=== PATIENT | female | born 1985 | race Caucasian/White ===

== ENCOUNTER 2018-07-11 13:58 | Day surgery (SDC) | payer BC ==
[~2018-07-11 13:58] MED LIST: CLINDAMYCIN 600 MG/D5W RTU 600 MG/50 ML RTUPB IV PRN; DEXAMETHASONE SOD PHOSPHATE INJ 4 MG/1 ML VIAL ONE; KETOROLAC TROMETHAMINE 60 MG/2 ML SDV ONE; ONDANSETRON HCL INJ/PF 4 MG/2 ML SDV ONE; VANCOMYCIN HCL 1,000 MG in DEXTROSE 5%-WATER 250 ML IV PRN
[2018-07-11] MEDS ORDERED: CLINDAMYCIN 600 MG/D5W RTU 600 MG/50 ML RTUPB IV ONE (14:23)
[2018-07-11] MEDS ORDERED: ACETAMINOPHEN 1,000 MG/100 ML RTUPB IV ONE (14:28)
[2018-07-11] MEDS ORDERED: HYDROMORPHONE HCL INJ/PF 2 MG/ML AMPULE ONE (14:28)
[2018-07-11] MEDS ORDERED: PROPOFOL INJ 200 MG/20 ML VIAL IV ONE (14:28)
[2018-07-11] MEDS ORDERED: MIDAZOLAM 2 MG/2 ML INJ ONE (14:28)
[2018-07-11] MEDS ORDERED: ONDANSETRON HCL INJ/PF 4 MG/2 ML SDV ONE (14:30)
[2018-07-11 14:42] LABS: APPEARANCE,URINE SLIGHTLY-CLOUDY; BILIRUBIN,URINE NEGATIVE (NEGATIVE); COLOR,URINE YELLOW; GLUCOSE, URINE NEGATIVE (NEGATIVE); KETONES,URINE NEGATIVE (NEGATIVE); LEUKOCYTE ESTERASE,URINE MODERATE (NEGATIVE); NITRITE,URINE NEGATIVE (NEGATIVE); PROTEIN,URINE NEGATIVE (NEGATIVE); URINE SPECIFIC GRAVITY 1.016; UROBILINOGEN,URINE NEGATIVE mg/dL (<2.0)
[2018-07-11] MEDS ORDERED: DIPHENHYDRAMINE HCL 50 MG/ML VIAL IV PRN (15:18)
[2018-07-11] MEDS ORDERED: PROMETHAZINE HCL INJ 25 MG/1 ML VIAL IV PRN ×2 (15:18)
[2018-07-11] MEDS ORDERED: MEPERIDINE HCL/PF INJ 25 MG/1 ML DISP.SYRIN IV PRN (15:18)
[2018-07-11] MEDS ORDERED: FENTANYL CITRATE INJ/PF 100 MCG/2 ML AMPUL IV PRN ×2 (15:18)
[2018-07-11] MEDS ORDERED: MORPHINE SULFATE 10 MG/ML INJ IV PRN (15:18)
[2018-07-11] MEDS ORDERED: BUPIVACAINE HCL 0.5 % INJ/PF 30 ML SDV ONE (15:26)
[2018-07-11] MEDS ORDERED: FENTANYL CITRATE INJ/PF 100 MCG/2 ML AMPUL ONE (16:48)
[2018-07-11] MEDS: FENTANYL CITRATE INJ/PF 100 MCG/2 ML AMPUL IV PRN ×2 (16:50→17:00)
[2018-07-11] MEDS ORDERED: OXYCODONE-ACETAMINOPHEN 5-325 MG TABLET PO PRN ×2 (16:54)
--- NOTE | 2018-07-11 16:54 | Discharge Summary ---
Discharge Summary (SDC) - Discharge Final Diagnosis: Flow of left lateral malleolus with syndesmotic repair Date of Surgery: 07/11/18 Discharge Date: 07/11/18 Condition: Good Treatment or Instructions: Keep the splint dry clean and intact. Ice and elevate as needed Nonweightbearing of the left lower extremity. Use crutches or walker for ambulation. Follow-up in 10-14 days Prescriptions: Oxycodone HCl/Acetaminophen [Percocet 5-325 mg Tablet] 1 - 2 tab PO ASDIR PRN # 40 tablet PRN Reason: Discharge Diet: As Tolerated Respiratory Treatments at Home: Deep Breathing/Coughing Discharge Activity: No Driving, Keep Legs Elevated, No Lifting/Push/Pulling, Slowly Increase Activity Home Care Assistance: None Needed Adaptive Devices on Discharge: Axillary Crutches Report the Following to Your Physician Immediately: Shortness of Breath, Vomiting, Increase in Pain, Fever over 101 Degrees, Unusual Bleeding, Redness, Swelling, Warmth, Increased Soreness, Drainage-Yellow, Drainage-Holman, Drainage- Green, Drainage-Foul Smelling
[2018-07-11] MEDS ORDERED: OXYCODONE-ACETAMINOPHEN 5-325 MG TABLET ONE (17:46)
[2018-07-11 19:28] VITALS: BP 116/56
--- NOTE | 2018-07-12 08:50 | RADIOLOGY REPORT (SQ) ---
EXAM DESCRIPTION: NO CHG FLUORO; ANKLE LEFT AP/LATERAL COMPLETED DATE/TIME: 07/11/2018 5:00 pm REASON FOR STUDY: ORIF LEFT ANKLE S82.62XA DISP FX OF LATERAL MALLEOLUS OF LEFT FIBULA, INIT COMPARISON: None. FLUOROSCOPY TIME: 0.8 minutes 8 images saved to PACS. TECHNIQUE: Intra-operative images acquired during surgical procedure to evaluate progress. NUMBER OF IMAGES: 8 LIMITATIONS: None. FINDINGS: Selected images from plate and screw fixation of distal fibular fracture. Alignment is an atomic. IMPRESSION: IMAGE(S) OBTAINED DURING PROCEDURE. COMMENT: Quality ID [id number]: Final reports for procedures using fluoroscopy that document radiation exp osure indices, or exposure time and number of fluorographic images (if radiation exposure indices are not available) Please consult full operative report of the attending physician for description of the procedure. TECHNICAL DOCUMENTATION: JOB ID: [id number] [employer]- All Rights Reserved Reading location - IP/workstation name: [facility]
--- NOTE | 2018-07-12 08:50 | RADIOLOGY REPORT (SQ) ---
EXAM DESCRIPTION: NO CHG FLUORO; ANKLE LEFT AP/LATERAL COMPLETED DATE/TIME: 07/11/2018 5:00 pm REASON FOR STUDY: ORIF LEFT ANKLE S82.62XA DISP FX OF LATERAL MALLEOLUS OF LEFT FIBULA, INIT COMPARISON: None. FLUOROSCOPY TIME: 0.8 minutes 8 images saved to PACS. TECHNIQUE: Intra-operative images acquired during surgical procedure to evaluate progress. NUMBER OF IMAGES: 8 LIMITATIONS: None. FINDINGS: Selected images from plate and screw fixation of distal fibular fracture. Alignment is an atomic. IMPRESSION: IMAGE(S) OBTAINED DURING PROCEDURE. COMMENT: Quality ID [id number]: Final reports for procedures using fluoroscopy that document radiation exp osure indices, or exposure time and number of fluorographic images (if radiation exposure indices are not available) Please consult full operative report of the attending physician for description of the procedure. TECHNICAL DOCUMENTATION: JOB ID: [id number] [employer]- All Rights Reserved Reading location - IP/workstation name: [facility]
--- NOTE | 2018-07-22 16:51 | Operative Report ---
Operative Report DATE OF SURGERY: 07/11/18 PREOPERATIVE DIAGNOSIS: Left lateral malleolus ankle fracture and syndesmotic disruption POSTOPERATIVE DIAGNOSIS: Same OPERATION: ORIF of left lateral malleolus with syndesmotic repair using tightrope ANESTHESIA: GA TISSUE REMOVED OR ALTERED: none COMPLICATIONS: None ESTIMATED BLOOD LOSS: Less than 20 mL INTRAOPERATIVE FINDINGS: As above PROCEDURE: Patient received 2 g of Ancef in the preoperative holding area. Patient was now taken to the operating room and induced and intubated in supine position. Once the tube was secured a thigh tourniquet was applied to left extremity. Extremity was prepped and draped in a normal surgical fashion. Timeout was done identifying the left as the correct site. Esmarch was used to exsanguinate the extremity and the tourniquet was inflated to 300 mmHg. C-arm pictures were taken showing the fracture as well as the widening of the medial clear space and the tibiofibular clear space. Stress view showed it opened further. And with the high fibula fracture we plan to proceed with a syndesmotic repair. We started with the lateral malleolus and A standard lateral incision was done straight over the distal fibula. Check position was taken down to the bone and then periosteal elevator was used to expose the fracture site and elevate the periosteum at the fracture site. Both fragments were visualized and I Hohmann was used to retract the tissue. I was able to then reduce the fracture with reduction clamps. C-arm pictures were taken to confirm our reduction. I then applied the appropriate plate and make sure was in a proper alignment and with C-arm. Once I was satisfied with the proximal distal situation and the AP lateral position of the plate I proceeded then to use the drill guide and drill to drill the proximal hole in the plate in the distal fragment. I measured and placed a proper length screw. I repeated this with the distal hole in the plate to secure the proximal fragment. Reduction clamp was removed and the fracture stayed reduced. AP and lateral x-rays confirm there is no change in alignment. I made sure that that 1 of the holes was amenable to placement of my typed note from the syndesmotic repair. Make sure elbow is about 4 cm above the joint space and kept in ankle in neutral and proceeded to drill from the lateral malleolus into the tibia at a 30 degree angle sure I had 4 cortices. I then use my titanium tightrope button and placed it through the predrilled hole and passed it through the skin medially. Under C-arm I make sure that the button was on the medial aspect of the cortical aspect of the tibia and flipped it successfully and then proceeded to tighten the tight rope while holding the reduction. AP and lateral x-rays make sure that the tight rope was against the tibia and secured nicely and my syndesmosis interval was appropriate. I then proceeded to fill in the remaining holes I drilling and using C-arm and measuring guide to applied appropriate screws. Once I was satisfied with my lateral fixation. At this point I proceeded to close my lateral wound with 0 Vicryl and 3-0 Vicryl and dilcia for skin. Tourniquet was let down and the dressing was applied. Xeroform 4 x 4 sterile dressing followed by Sof-Rol was applied. A posterior Ortho-Glass splint was applied and overwrapped with an Warren bandage. I held the foot in neutral and waiting until the splint hardened. At this point drapes were removed and patient was extubated and sent to PACU in stable condition.
== END 2018-07-11 19:20 | disposition home or self-care (01) ==
LOC: OROUT 13:58
PROVIDERS: ATTEND Orthopaedic Surgery
DX: S82.62XA Displaced fracture of lateral malleolus of left fibula, initial encounter for closed fracture (principal); S93.402A Sprain of unspecified ligament of left ankle, initial encounter; X50.1XXA Overexertion from prolonged static or awkward postures, initial encounter; Y93.51 Activity, roller skating (inline) and skateboarding; M25.572 Pain in left ankle and joints of left foot; Z88.0 Allergy status to penicillin; Z01.818 Encounter for other preprocedural examination
CPT/HCPCS: 81025; 81001; 73600; 27792; C1713 ×7; J2250; J3490; J1100; J1885; J3010; J1170; J2405; J2704; J0131; 01480